=== PATIENT | male | born 1955 | race African-American/Black ===

== ENCOUNTER → 2016-11-10 | Outpatient (CLI) | payer OTHER ==
--- NOTE | 2016-11-10 13:05 | KCIC ---
PROCEDURE Bilateral three-view wrist HISTORY Bilateral wrist spelling for 1 year. Polyarthralgia. COMPARISON None FINDINGS Right Widening of the scapholunate space compatible with dissociation. There is an elevated scapholunate angle. Rotary subluxation of the scaphoid. Proximal migration of the capitate into the scapholunate space compatible with scapholunate advanced collapse. 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 There also is severe narrowing of the space between capitate and hamate with the lunate. No evidence of an acute fracture. Surgical staple is identified at the posterior wrist. There is some soft tissue swelling around the wrist. 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 Left Widening of the scapholunate space, rotary subluxation of the scaphoid and increased scapholunate angle are identified. Proximal migration of the capitate into the scapholunate gap. There is also some severe narrowing of the space between the lunate and the hamate and capitate. Severe osteoarthritis at the radioscaphoid joint. Soft tissue swelling about the wrist. No evidence of acute fracture. 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 Electronically signed by: Sid Clifford MD (Nov 10, 2016 13:04:12)
== END | disposition home or self-care (01) ==
LOC: KCIC 11:30
PROVIDERS: ATTEND Internal Medicine Rheumatology
DX: M19.031 Primary osteoarthritis, right wrist (principal); M25.50 Pain in unspecified joint
CPT/HCPCS: 73110

== ENCOUNTER → 2016-12-11 | Outpatient (CLI) | payer OTHER ==
--- NOTE | 2016-12-11 11:11 | KCIC ---
Ankle bilateral, multiple views Indication: Bilateral ankle pain. Time of exam 10:31 a.m. Ankle alignment is normal bilaterally. The ankle mortises are well-maintained. Talar domes are smooth. No osteochondral lesion is seen. The left ankle does demonstrate a small well corticated osseous density at the tip of the medial malleolus consistent with an old avulsion. No acute fractures are seen. There 3 metallic BBs overlying the right midfoot consistent with foreign bodies. Impression: No acute feature is identified within either ankle. There is an old avulsion of the left medial malleolus. Metallic foreign bodies in the right midfoot are also noted. Electronically signed by: Cipriano Tan MD (Dec 11, 2016 11:09:51)
--- NOTE | 2016-12-11 11:13 | KCIC ---
Bilateral feet, multiple views Indication: Bilateral foot pain. Time of exam 10:25 a.m. Multiple views bilateral feet were obtained. Right foot head does show 4 metallic BBs, 3 at the level of the midfoot and the 4th at the level of the distal 1st metatarsal, consistent with foreign bodies. There are mild degenerative changes at the 1st MTP joints bilaterally. The remaining metatarsals are intact. No periosteal reaction or stress reaction is seen. The phalanges are unremarkable. Midfoot and hindfoot are unremarkable for acute abnormality. Impression: Metallic foreign bodies in the right foot. There are mild degenerative changes at the 1st MTP joints bilaterally. The study is otherwise unremarkable. Electronically signed by: Cipriano Tan MD (Dec 11, 2016 11:12:07)
== END | disposition home or self-care (01) ==
LOC: KCIC 10:05
PROVIDERS: ATTEND Nurse Practitioner
DX: M79.671 Pain in right foot (principal); M79.672 Pain in left foot; M25.572 Pain in left ankle and joints of left foot; M25.571 Pain in right ankle and joints of right foot
CPT/HCPCS: 73610; 73630